=== PATIENT | female | born 1960 | race Caucasian/White ===

== ENCOUNTER 2018-09-10 20:51 | Emergency (ER) | payer OTHER ==
[~2018-09-10] VITALS: Ht 157.5 cm; Wt 81.6 kg
[2018-09-10] MEDS ORDERED: COZAAR50 MG (21:07)
== END 2018-09-10 23:56 | disposition home or self-care (01) ==
LOC: ER 20:51
DX: K58.9 Irritable bowel syndrome, unspecified (principal)